=== PATIENT | female | born 1990 | race Hispanic/Latino ===

== ENCOUNTER 2022-02-14 21:01 | Inpatient (IN) | payer MEDICAID, OTHER ==
[~2022-02-14] VITALS: Ht 152.4 cm; Wt 80.1 kg
[2022-02-14 21:23] LABS: BASOPHILS % (AUTO) 0.5 % (0.0-5.0); EOSINOPHILS % (AUTO) 3.5 % (0.0-8.0); HEMATOCRIT 31.8 % (36-48); LYMPHOCYTES % (AUTO) 21.8 % (21.0-51.0); MEAN CORPUSCULAR HEMOGLOBIN 20.7 pg (27.0-33.0); MEAN CORPUSCULAR HGB CONC 29.9 g/dL (32.0-36.0); MEAN CORPUSCULAR VOLUME 69.3 fL (79-99); MONOCYTES % (AUTO) 7.6 % (3.0-13.0); NEUTROPHILS % (AUTO) 66.2 % (40.0-77.0); PLATELET COUNT (AUTO) 291 K/uL (130-400); RED BLOOD CELL COUNT(AUTO) 4.59 MIL/uL (4.00-5.50); RED CELL DISTRIBUTION WIDTH 18.6 % (11.0-15.5); WHITE BLOOD COUNT (AUTO) 12.6 K/uL (4.8-10.8)
[2022-02-14 21:24] LABS: APPEARANCE,URINE CLOUDY (CLEAR); BILIRUBIN,URINE NEGATIVE (NEGATIVE); COLOR,URINE YELLOW (YELLOW); GLUCOSE, URINE (UA) NEGATIVE (NEGATIVE); KETONES,URINE NEGATIVE (NEGATIVE); LEUKOCYTE ESTERASE ,URINE TRACE (NEGATIVE); NITRATE,URINE NEGATIVE (NEGATIVE); OCCULT BLOOD,URINE NEGATIVE (NEGATIVE); PROTEIN,URINE NEGATIVE (NEGATIVE)
[2022-02-14 21:27] LABS: HCG,QUALITATIVE URINE NEGATIVE (NEGATIVE)
[2022-02-14] MEDS ORDERED: MORPHINE 4 MG SYG IVP ONE (21:30)
[2022-02-14 21:32] LABS: BACTERIA,URINE Few /HPF (None Seen); MUCUS,URINE Moderate LPF (None Seen); SQUAMOUS EPITHELIAL CELL,UR Moderate /HPF (0-2)
[2022-02-14 21:37] LABS: CREATININE 0.8 mg/dL (0.5-1.5); POTASSIUM 3.6 mmol/L (3.5-5.1)
[2022-02-14 21:42] LABS: ALBUMIN 3.6 g/dL (3.5-5.0); TOTAL PROTEIN, SERUM 7.9 g/dL (6.0-8.3)
[2022-02-14] MEDS ORDERED: IOHEXOL 350 MG/ML 100ML INFUS..BTL IV ONE (22:02)
[2022-02-14] MEDS ORDERED: ZOSYN 3.375GM +NS 50ML IV ONE (23:00)
[2022-02-15] MEDS ORDERED: MORPHINE 4 MG SYG IV PRN
[2022-02-15] MEDS ORDERED: LIDOCAINE HCL 2% VISCOUS 15 ML UDCUP PO ONE
[2022-02-15] MEDS ORDERED: DICYCLOMINE HCL 10 MG/5 ML ML PO ONE
[2022-02-15] MEDS ORDERED: ACETAMINOPHEN 325 MG TAB PO ONE
[2022-02-15] MEDS ORDERED: MAG/ALUM/SIMETH 30 ML UDCUP PO ONE
[2022-02-15] MEDS ORDERED: SUCRALFATE 1 GM TABLET PO SCH
[2022-02-15] MEDS: LACTATED RINGERS 1000ML 1,000 ML IV SCH ×2 (00:11→14:40)
[2022-02-15 03:30] VITALS: BP 105/58
[2022-02-15] MEDS: MORPHINE 2 MG SYG IV PRN ×2 (04:02→13:26)
[2022-02-15 04:12] LABS: BASOPHILS % (AUTO) 0.4 % (0.0-5.0); EOSINOPHILS % (AUTO) 4.6 % (0.0-8.0); HEMATOCRIT 28.2 % (36-48); MEAN CORPUSCULAR HEMOGLOBIN 20.9 pg (27.0-33.0); MEAN CORPUSCULAR HGB CONC 30.1 g/dL (32.0-36.0); MEAN CORPUSCULAR VOLUME 69.3 fL (79-99); MONOCYTES % (AUTO) 7.4 % (3.0-13.0); NEUTROPHILS % (AUTO) 59.4 % (40.0-77.0); PLATELET COUNT (AUTO) 253 K/uL (130-400); RED BLOOD CELL COUNT(AUTO) 4.07 MIL/uL (4.00-5.50); RED CELL DISTRIBUTION WIDTH 18.7 % (11.0-15.5); WHITE BLOOD COUNT (AUTO) 9.1 K/uL (4.8-10.8)
[2022-02-15 04:32] LABS: INR 0.98 (0.85-1.15); PROTHROMBIN TIME 10.7 SEC (9.6-11.6)
[2022-02-15 04:33] LABS: PARTIAL THROMBOPLASTIN TIME 27.2 SEC (26.3-35.5)
[2022-02-15 04:35] LABS: CREATININE 0.8 mg/dL (0.5-1.5); MAGNESIUM 1.9 mg/dL (1.80-2.40); PHOSPHORUS 3.9 mg/dL (2.5-4.9); POTASSIUM 3.5 mmol/L (3.5-5.1)
[2022-02-15 05:33] LABS: ERYTHROCYTE SEDIMENTATION RATE 38 MM/HR (0-20)
[2022-02-15] MEDS: ZOSYN 3.375GM+NS 50ML 50 ML IV SCH ×3 (06:48→19:25)
[2022-02-15 07:25] VITALS: BP 101/65
[2022-02-15 12:15] VITALS: BP 104/58
[2022-02-15] MEDS: FAMOTIDINE 20MG VIAL IV SCH ×2 (13:25→19:25)
[2022-02-15 15:45] VITALS: BP 116/52
[2022-02-15 20:00] VITALS: BP 115/74
[2022-02-15 23:57] VITALS: BP 102/49
[2022-02-16] MEDS ORDERED: LACTATED RINGERS 1000ML 1,000 ML IV ONE (03:17)
[2022-02-16 04:00] VITALS: BP 97/61
[2022-02-16] MEDS: ZOSYN 3.375GM+NS 50ML 50 ML IV SCH ×2 (04:07→19:46)
[2022-02-16 06:48] LABS: HEMATOCRIT 29.5 % (36-48); MEAN CORPUSCULAR HEMOGLOBIN 20.5 pg (27.0-33.0); MEAN CORPUSCULAR HGB CONC 29.5 g/dL (32.0-36.0); MEAN CORPUSCULAR VOLUME 69.4 fL (79-99); PLATELET COUNT (AUTO) 254 K/uL (130-400); RED BLOOD CELL COUNT(AUTO) 4.25 MIL/uL (4.00-5.50); RED CELL DISTRIBUTION WIDTH 18.5 % (11.0-15.5)
[2022-02-16 07:00] LABS: CREATININE 0.8 mg/dL (0.5-1.5)
[2022-02-16 07:30] VITALS: BP 100/57
[2022-02-16 08:07] LABS: BASOPHILS % (MANUAL) 3 % (0-2); EOSINOPHILS % (MANUAL) 5 % (1-6); LYMPHOCYTES % (MANUAL) 32 % (22-44); MAN.DIFF COMMENT-IMPRESSION MANUAL DIFFERENTIAL; MONOCYTES % (MANUAL) 2 % (2-9); PLATELET MORPHOLOGY COMMENT ADEQUATE; SEGMENTED NEUTROPHILS % 58 % (40-70)
[2022-02-16] MEDS: FAMOTIDINE 20MG VIAL IV SCH ×2 (08:48→19:46)
[2022-02-16] MEDS: ONDANSETRON 4MG INJ IV PRN (08:52)
[2022-02-16] MEDS ORDERED: DIATR MEGLU/DIATRIZOATE SODIUM 30 ML BOTTLE ONE (10:06)
[2022-02-16 11:00] VITALS: BP 120/74
[2022-02-16] MEDS ORDERED: IOHEXOL 350 MG/ML 100ML INFUS..BTL IV ONE (13:40)
[2022-02-16 16:00] VITALS: BP 115/69
[2022-02-16 20:00] VITALS: BP 114/56
[2022-02-17] VITALS (7 sets, daily range): BP systolic 101–122; BP diastolic 58–75
[2022-02-17 04:04] LABS: BASOPHILS % (AUTO) 0.3 % (0.0-5.0); EOSINOPHILS % (AUTO) 4.8 % (0.0-8.0); HEMATOCRIT 28.1 % (36-48); LYMPHOCYTES % (AUTO) 28.4 % (21.0-51.0); MEAN CORPUSCULAR HEMOGLOBIN 20.5 pg (27.0-33.0); MEAN CORPUSCULAR HGB CONC 29.9 g/dL (32.0-36.0); MEAN CORPUSCULAR VOLUME 68.5 fL (79-99); MONOCYTES % (AUTO) 7.3 % (3.0-13.0); NEUTROPHILS % (AUTO) 58.9 % (40.0-77.0); PLATELET COUNT (AUTO) 241 K/uL (130-400); RED CELL DISTRIBUTION WIDTH 18.2 % (11.0-15.5); WHITE BLOOD COUNT (AUTO) 6.8 K/uL (4.8-10.8)
[2022-02-17 04:18] LABS: CREATININE 0.8 mg/dL (0.5-1.5); POTASSIUM 3.8 mmol/L (3.5-5.1)
[2022-02-17] MEDS: ZOSYN 3.375GM+NS 50ML 50 ML IV SCH ×3 (04:48→20:13)
[2022-02-17] MEDS: FAMOTIDINE 20MG VIAL IV SCH ×2 (11:29→20:12)
[2022-02-17] MEDS ORDERED: PEG 3350/NA SULF,BICARB,CL/KCL 4000 ML SOLN PO SCH (16:00)
[2022-02-17] MEDS: ONDANSETRON 4MG INJ IV PRN (20:12)
[2022-02-18 03:36] VITALS: BP 98/56
[2022-02-18 04:02] LABS: BASOPHILS % (AUTO) 0.3 % (0.0-5.0); EOSINOPHILS % (AUTO) 3.4 % (0.0-8.0); HEMATOCRIT 27.5 % (36-48); LYMPHOCYTES % (AUTO) 28.2 % (21.0-51.0); MEAN CORPUSCULAR HEMOGLOBIN 20.8 pg (27.0-33.0); MEAN CORPUSCULAR HGB CONC 30.2 g/dL (32.0-36.0); MEAN CORPUSCULAR VOLUME 68.8 fL (79-99); MONOCYTES % (AUTO) 7.3 % (3.0-13.0); NEUTROPHILS % (AUTO) 60.5 % (40.0-77.0); PLATELET COUNT (AUTO) 208 K/uL (130-400); RED CELL DISTRIBUTION WIDTH 18.2 % (11.0-15.5); WHITE BLOOD COUNT (AUTO) 6.7 K/uL (4.8-10.8)
[2022-02-18 04:10] LABS: % IRON SATURATION 4.1 % (22-44)
[2022-02-18 04:13] LABS: INR 0.98 (0.85-1.15); PROTHROMBIN TIME 10.7 SEC (9.6-11.6)
[2022-02-18 04:14] LABS: PARTIAL THROMBOPLASTIN TIME 21.9 SEC (26.3-35.5)
[2022-02-18 04:24] LABS: CREATININE 0.7 mg/dL (0.5-1.5); POTASSIUM 3.9 mmol/L (3.5-5.1)
[2022-02-18] MEDS: ZOSYN 3.375GM+NS 50ML 50 ML IV SCH ×2 (04:50→12:05)
[2022-02-18 08:00] VITALS: BP 97/68
[2022-02-18 12:00] VITALS: BP 103/63
[2022-02-18] MEDS: FAMOTIDINE 20MG VIAL IV SCH (12:05)
[2022-02-18 16:00] VITALS: BP 119/58
[2022-02-18] MEDS ORDERED: METR-172 PO (17:22)
[2022-02-18] MEDS ORDERED: LEVO750T39 PO (17:22)
== END 2022-02-18 19:30 | disposition home or self-care (01) | DRG 392 ==
LOC: EDH 21:01 → EDHIP 21:02 → 4CH 02-15 03:04
PROVIDERS: ADMIT Internal Medicine; ATTEND Internal Medicine
PROC: 0DJD8ZZ Inspection of Lower Intestinal Tract, Via Natural or Artificial Opening Endoscopic (ICD-10-PCS; principal; 2022-02-18)
DX: R19.7 Diarrhea, unspecified (principal); J45.909 Unspecified asthma, uncomplicated; Z20.822 Contact with and (suspected) exposure to COVID-19; D50.9 Iron deficiency anemia, unspecified
CPT/HCPCS: 36415; 74177; 80048; 80053; 81001; 81025; 83540; 83550; 83690; 83735; 84100; 85025; 85610; 85651; 85730; 86140; 87040; 87635; 93005; G0378; J2270; J2405; J2543; J3490; J7120; Q9963; Q9967